=== PATIENT | male | born 1950 | race Caucasian/White ===

== ENCOUNTER 2019-07-10 12:35 | Day surgery (SDC) | payer MEDICARE, BC ==
[2019-07-07 13:39] LABS: BASOPHILS % (AUTO) 0.6 % (0-1); EOSINOPHILS # (AUTO) 0.3 X10'3 (0-0.9); EOSINOPHILS % (AUTO) 3.9 % (0-6); HEMATOCRIT 47.1 % (42.0-52.0); HEMOGLOBIN 15.9 g/dl (14.0-17.9); LYMPHOCYTES # (AUTO) 1.8 X10'3 (1.1-4.8); MEAN CORPUSCULAR HEMOGLOBIN 29.3 PG (27.0-31.0); MEAN CORPUSCULAR HGB CONC 33.8 g/dL (33.0-36.5); MEAN CORPUSCULAR VOLUME 86.6 FL (78-98); MEAN PLATELET VOLUME 8.3 FL (7.4-10.4); MONOCYTES # (AUTO) 0.7 X10'3 (0-0.9); MONOCYTES % (AUTO) 10.7 % (2-12); NEUTROPHILS # (AUTO) 3.7 X10'3 (1.8-7.7); NEUTROPHILS % (AUTO) 56.8 % (42-75); PLATELET COUNT 302 X10'3 (140-440); RED BLOOD COUNT 5.44 X10'6 (4.70-6.10); RED CELL DISTRIBUTION WIDTH 14.1 % (11.5-14.5); WHITE BLOOD COUNT 6.5 X10'3 (4.5-11.0)
[2019-07-07 13:48] LABS: ALBUMIN 3.9 G/DL (3.4-5.0); ANION GAP 5 (8-16); BLOOD UREA NITROGEN 18 MG/DL (7-18); CALCIUM 8.9 MG/DL (8.5-10.1); CHLORIDE 105 MMOL/L (99-107); CREATININE 1.06 MG/DL (0.60-1.10); GLUCOSE 105 MG/DL (70-104); POTASSIUM 4.4 MMOL/L (3.5-5.1); SODIUM 141 MMOL/L (135-145); TOTAL CARBON DIOXIDE 31.3 MMOL/L (24-32); eGFR 69 ML/MIN
[2019-07-07 13:50] LABS: PARTIAL THROMBOPLASTIN TIME 26 SECONDS (22-32)
[2019-07-10] VITALS (11 sets, daily range): BP systolic 144–176; BP diastolic 54–98
[~2019-07-10] VITALS: Ht 190.5 cm; Wt 128.3 kg
[~2019-07-10 12:35] MED LIST: no home medications
[2019-07-10] MEDS ORDERED: diphenhydrAMINE 25mg capsule PO PRN (12:50)
[2019-07-10] MEDS ORDERED: LORazepam 0.5 MG tablet PO PRN (12:50)
[2019-07-10] MEDS ORDERED: normal saline 1,000 ML IV SCH (12:50)
[2019-07-10] MEDS ORDERED: LIDOcaine/PRILOcaine 5gm cream TP ONE (14:00)
[2019-07-10] MEDS ORDERED: pneumococcal 23-VAL P-sac vacc 25 mcg/0.5ml vial IMVAC ONE (16:10)
[2019-07-10] MEDS ORDERED: heparin 1,000unit/ml 10ml vial 10 ML ONE (16:26)
[2019-07-10] MEDS ORDERED: iohexol 350 MG/ML 50ML vial IV ONE ×2 (16:26→17:15)
[2019-07-10] MEDS ORDERED: iohexol 350MG/ML 100ml bottle IV ONE (16:26)
[2019-07-10] MEDS ORDERED: nitroGLYCERIN-Tridil 50MG/D5W 250 ML IV ONE (16:26)
[2019-07-10] MEDS ORDERED: LIDOcaine 1% (10mg/ml)w/preservative injection 20ml MDV ONE (16:26)
[2019-07-10] MEDS ORDERED: verapamil 2.5 mg/ml inj IV ONE (16:26)
[2019-07-10] MEDS ORDERED: fentaNYL/PF 50MCG/1 ML 2ML syringe ONE (16:41)
[2019-07-10] MEDS ORDERED: midazolam 2 mg/2 ml injection ONE (16:41)
[2019-07-10 17:10] LABS: ISTAT HGB ART 14.6 g/dl (14.0-18.0); ISTAT Hct ART 43 %PCV (42-52); ISTAT Hct MIX 43 %PCV (42-52); ISTAT O2 SATURATION ARTERIAL 94 % (95-98); ISTAT O2 SATURATION MIX VENOUS 64 % (60-80); ISTAT SOURCE ART; ISTAT SOURCE MIX
== END 2019-07-10 21:05 | disposition home or self-care (01) ==
LOC: SSTAY O 12:35
PROVIDERS: ATTEND Internal Medicine Cardiovascular Disease
DX: R94.39 Abnormal result of other cardiovascular function study (principal); I10 Essential (primary) hypertension; E78.5 Hyperlipidemia, unspecified; G47.33 Obstructive sleep apnea (adult) (pediatric); I25.10 Atherosclerotic heart disease of native coronary artery without angina pectoris; J44.9 Chronic obstructive pulmonary disease, unspecified; Z79.899 Other long term (current) drug therapy; Z98.890 Other specified postprocedural states; Z96.653 Presence of artificial knee joint, bilateral; Z23 Encounter for immunization; Z79.01 Long term (current) use of anticoagulants
CPT/HCPCS: 36415; 80048; 82803; 85014; 85025; 85610; 85730; 90732; 93005; 93460; 99152; 99153; C1769; G0008; J1644; J2001; J2250; J3010; J7030; Q0163; Q9967; A4620; A5120; A6258; C1760; J3490